=== PATIENT | female | born 1995 | race Caucasian/White ===

== ENCOUNTER 2020-12-10 12:22 | Emergency (ER) | payer OTHER, SELFPAY ==
--- NOTE | ~2020-12-10 | XR_ITS ---
XR hand RT min 3V DATE: 12/12/2020 07:31 INDICATION: Second and third distal phalangeal pustule. Finger wounds. TECHNIQUE: 4 views COMPARISON: None FINDINGS: No fracture or dislocation, periosteal reaction or bone destruction. Joint spaces are prese rved. No subcutaneous emphysema or abnormal calcification. No erosive changes or chondrocalcinosis. IMPRESSION: Negative Reviewed, dictated and finalized at location A. RING ROOM MAN IMPRESSION: Negative
[2020-12-10 12:27] VITALS: BP 136/83; PULSE 112; RESP 16; TEMP 36.4; O2SAT 100
[2020-12-10 13:06] LABS: Add Urine Microscopic? YES; Appearance Urine Clear (Clear); Bacteria Urine Trace /hpf; Bilirubin Urine Negative (Negative); Blood Urine 1+ (Negative); Color Urine Yellow (Yellow); Glucose Urine UA Negative (Negative); Ketones Urine Negative (Negative); Leukocyte Esterase Ur Negative LEU/UL (Negative); Mucus Urine Rare /lpf; Nitrate Urine Negative (Negative); Protein Urine Negative (Negative); Specific Grav Ur 1.013 (1.001-1.035); Squamous Epithelial Cell Urine Rare /hpf (Few); Urobilinogen Urine Negative mg/dL (<2.0); WBC Urine 0-3 /hpf
[2020-12-10 13:20] LABS: Basophils Absolute Auto 0.1 K/mm3 (0.0-0.1); Basophils Percent Auto 0.9 % (0.2-1.2); Eosinophils Absolute Auto 0.2 K/mm3 (0-0.3); Hematocrit 38.5 % (37.0-47.0); Hemoglobin 12.5 g/dL (12.0-15.0); Immature Granulocyte Absolute 0.04 K/mm3 (0.00-0.031); Immature Granulocyte Percent A 0.5 % (0-0.5); Lymphocytes Absolute Auto 1.42 K/mm3 (0.9-3.2); Lymphocytes Percent Auto 17.5 % (18.3-44.2); Mean Corpuscular HGB Conc 32.5 g/dl (32-36); Mean Corpuscular Hemoglobin 29.6 pg (26-34); Mean Corpuscular Volume 91.2 fl (80-100); Mean Platelet Volume 10.4 fl (7.4-10.4); Monocytes Absolute Auto 0.6 K/mm3 (0.1-0.6); Monocytes Percent Auto 7.5 % (2.6-8.5); Neutrophils Absolute Auto 5.8 K/mm3 (1.3-6.7); Neutrophils Percent Auto 70.6 % (45.5-73.1); Platelet Count Result 325 k/mm3 (150-375); Red Blood Count 4.22 M/mm3 (4.2-5.4); Red Cell Distribution Width 13.4 % (11.5-14.5); White Blood Count 8.1 K/mm3 (4.5-10.0)
[2020-12-10 13:33] LABS: Alanine Aminotransferase 25 U/L (4-35); Albumin Level 4.2 g/dL (3.5-5.1); Alkaline Phosphatase 77 U/L (38-126); Anion Gap 6 mmol/L (8-16); Aspartate Amino Transferase 40 U/L (14-36); Bilirubin,Total 0.3 mg/dL (0.2-1.3); Blood Urea Nitrogen 12 mg/dL (7-17); Calcium 8.6 mg/dL (8.4-10.2); Carbon Dioxide 30 mmol/L (22-30); Chloride 104 mmol/L (98-107); Estimated CRCL calculation 101 ml/min; Estimated Glomerular Filt Rate > 60; Glucose 99 mg/dL (65-105); Potassium 3.7 mmol/L (3.4-5.0); Sodium 140 mmol/L (137-145)
--- NOTE | 2020-12-10 13:34 | ED.PSYCH ---
HPI - Psych General Chief Complaint: Psychiatric Symptoms <María Elena Mcdaniel PA-C - Last Filed: 12/11/20 11:59> Stated Complaint: psych <María Elena Mcdaniel PA-C - Last Filed: 12/11/20 11:59> Time Seen by Provider: 12/10/20 12:49 <María Elena Mcdaniel PA-C - Last Filed: 12/11/20 11:59> Source: patient and family <María Elena Mcdaniel PA-C - Last Filed: 12/11/20 11:59> Mode of arrival: ambulatory <María Elena Mcdaniel PA-C - Last Filed: 12/11/20 11:59> Limitations: other (acute psychosis) <María Elena Mcdaniel PA-C - Last Filed: 12/11/20 11:59> History of Present Illness HPI Narrative: This is a 25 year old female that presents to the ER for erratic behavior over the last couple of days. Mother reports patient was recently hospitalized at a psychiatric facility in [place] where she lives. Reports she was discharged about a week ago and mother was trying to get her back here to live with her. Reports she got in town here 2 days ago. Has noted abnormal behavior since she got here. Mother reports patient was being treated with Depakote, mirtazapine, and olanzapine. Patient did not bring her medications with her, so has not had these since she has been here. Mother notes patient has been acting strange. She made 7 different meals at once and then didn't eat any of it. Reports one day she found her outside sitting on the garbage can. Patient currently writing the ABCs on a notepad. Does not directly answer most questions. Pacing around the room. Has no complaints currently. <María Elena Mcdaniel PA-C - Last Filed: 12/11/20 11:59> Related Data Home Medications: Home Medications Medication Instructions Recorded Confirmed divalproex [Depakote] 250 mg PO Q12H 12/10/20 mirtazapine 15 mg PO HS 12/10/20 olanzapine 15 mg PO DAILY 12/10/20 <María Elena Mcdaniel PA-C - Last Filed: 12/11/20 11:59> Allergies/Adverse Reactions: Allergies Allergy/AdvReac Type Severity Reaction Status Date / Time Penicillins Allergy Nausea and Verified 12/10/20 12:37 Vomiting <María Elena Mcdaniel PA-C - Last Filed: 12/11/20 11:59> Review of Systems Review of Systems: Narrative: CONSTITUTIONAL: Denies fever PSYCHIATRIC: Reports anxiety and depression. <María Elena Mcdaniel PA-C - Last Filed: 12/11/20 11:59> All systems reviewed & are unremarkable except as noted in HPI and below <María Elena Mcdaniel PA-C - Last Filed: 12/11/20 11:59> [facility] Past Medical History Medical History: Medical History (Updated 12/13/20 @ 00:00 by Renata Pineda) History of psychiatric hospitalization <María Elena Mcdaniel PA-C - Last Filed: 12/11/20 11:59> Social History Social History: Social History (Updated 12/10/20 @ 13:39 by María Elena Mcdaniel PA-C) Smoking status: Current every day smoker Substance use: current Substance use type: amphetamines Gender identity (if verbalized by the patient): Female <María Elena Mcdaniel PA-C - Last Filed: 12/11/20 11:59> Exam Narrative: Exam Narrative: GENERAL: Thin, disheveled, and in no acute distress. HEAD: Normocephalic, atraumatic. EYES: EOMI. CHEST: Clear to auscultation. No respiratory distress. No wheezes rales or rhonchi HEART: Regular rate and rhythm. No murmur heard. Normal peripheral pulses. EXTREMITIES: Normal range of motion. No edema. SKIN: Warm, dry, no rash. NEURO: No focal deficits. Alert and oriented x3. PSYCH: Patient not easily directable. Jotting notes on her notepad. Pacing around the room. <María Elena Mcdaniel PA-C - Last Filed: 12/11/20 11:59> Course Course Emergency Course: Patient resting comfortably all night during my shift. No availability for bed placement as of yet. Patient to be turned over to Dr. Salmeron at change of shift. Please see his documentation for further disposition. <Elvin Gallagher DO - Last Filed: 12/11/20 06:15> 12/11/20 2200 returned over to myself at shift change patient currently resting in bed no current complaints
[2020-12-10 13:46] LABS: Ethanol < 10 mg/dL (<10)
[2020-12-10 14:04] LABS: Barbiturate Screen Urine Negative (Negative); Benzodiazepines Screen Urine Negative (Negative)
[2020-12-10 14:14] LABS: Amphetamine Screen Urine Negative (Negative); Cannabinoid Screen Urine Negative (Negative); Cocaine Screen Urine Negative (Negative); Methadone Screen Urine Negative (Negative); Opiate Screen Urine Negative (Negative); Phencyclidine Screen Urine Negative (Negative)
--- NOTE | 2020-12-10 15:04 | PC.NURSE ---
Oneyda from Crisis here to speak with patient. Pt is currently noncommunicative, sobbing and won't speak with Crisis.
--- NOTE | 2020-12-10 15:29 | PC.NURSE ---
Report to MARGIE Doyle, to continue care.
[2020-12-10 15:30] LABS: Valproic Acid 12.4 ug/mL (50-120)
[2020-12-10 16:00] VITALS: BP 123/77; PULSE 99; RESP 20; TEMP 36.4; O2SAT 100
--- NOTE | 2020-12-10 16:15 | PC.NURSE ---
During assessment patient would not speak to me. She began to cry and speak incoherently at this time. She was not aggressive with staff. Patient's mother provided information about patient and her history.
--- NOTE | 2020-12-10 17:01 | PC.NURSE ---
Kelly from [facility] called at approximately 1630 today to request intake information on patient. During this phone call she requested to speak with the patient. I transferred her call to the hallway phone and the patient and her mother came to speak with her. When patient was given the phone she would put it down and tell me she does not know how to use these devices . She would then put the phone back to her ear and would speak with disorganized thoughts and became agitated. Patient was able to ambulate back to her room and was accompanied by this nurse as well as her mother and MARGIE Garcia. When back in the room the patient reported frustration and states that I need to finish my research, how can I finish my research. Am I getting my medications or what? I don't know why what is happening now. I can cope. I was unable to get other information from the patient. Patient did take a bottle of water when offered but tells me I only want my food, i need to make it, I need my own caffeine. Patient again stopped talking and would not discuss things further. She sat back on her bed and would not talk to me. Patient was not being violent and was not acting aggressively towards any staff.
[2020-12-10] MEDS: WATER, STERILE FOR INJECTION 10 ML VIAL XX (17:18)
[2020-12-10] MEDS: OLANZapine 10 MG INJ VIAL IM (17:18)
--- NOTE | 2020-12-10 18:30 | PC.NURSE ---
Patient's mother, Azalia Jauregui , requests we call with any updates on patient status or if she is able to be transferred to another facility [facility].
[2020-12-10 20:38] LABS: SARS-CoV-2 RNA PCR Negative
[2020-12-11 02:16] VITALS: PULSE 88; RESP 18; TEMP 36.6; O2SAT 100
[2020-12-11 05:25] VITALS: BP 101/64; PULSE 85; RESP 18; O2SAT 98
--- NOTE | 2020-12-11 07:31 | PC.NURSE ---
Spoke with Oneyda with crisis at this time, updated that [facility] refused placement and still waiting to hear back from [facility] and [facility]. Oneyda states she is headed to her office and will try for placement for patient again. Patient resting in stretcher comfortably at this time with sitter at bedside.
--- NOTE | 2020-12-11 07:44 | PC.NURSE ---
Spoke with Oneyda and refaxed patients chart to [facility] at [phone]. Waiting to hear if accepting.
--- NOTE | 2020-12-11 10:15 | PC.NURSE ---
[facility] called and stated they cannot accommodate her needs. Placement denied at this time.
--- NOTE | 2020-12-11 10:35 | PC.NURSE ---
Faxed patient chart to [facility] at this time ([phone]). Waiting for return call.
--- NOTE | 2020-12-11 12:20 | PC.NURSE ---
Spoke with [facility] at this time and states they don't have a bed available but will contact ED today with a bed number.
[2020-12-11 13:38] VITALS: BP 114/78; PULSE 112; RESP 16; O2SAT 100
--- NOTE | 2020-12-11 18:43 | PC.NURSE ---
Spoke with [facility] at this time and states patient is still accepted to facility but no bed is available. Estimated time of available bed will be 12/12/2020.
[2020-12-11 21:45] VITALS: BP 101/68; PULSE 83; RESP 18; O2SAT 98
[2020-12-12 02:00] VITALS: BP 108/67; PULSE 81; RESP 18; O2SAT 98
[2020-12-12 06:19] VITALS: BP 93/48; PULSE 80; RESP 18; O2SAT 100
[2020-12-12 06:45] VITALS: TEMP 36.4
[2020-12-12 07:07] LABS: Basophils Absolute Auto 0.1 K/mm3 (0.0-0.1); Basophils Percent Auto 1.1 % (0.2-1.2); Eosinophils Absolute Auto 0.3 K/mm3 (0-0.3); Hemoglobin 13.1 g/dL (12.0-15.0); Immature Granulocyte Absolute 0.02 K/mm3 (0.00-0.031); Immature Granulocyte Percent A 0.3 % (0-0.5); Lymphocytes Absolute Auto 1.55 K/mm3 (0.9-3.2); Lymphocytes Percent Auto 25.2 % (18.3-44.2); Mean Corpuscular HGB Conc 32.8 g/dl (32-36); Mean Corpuscular Hemoglobin 30.4 pg (26-34); Mean Corpuscular Volume 92.8 fl (80-100); Mean Platelet Volume 10.2 fl (7.4-10.4); Monocytes Absolute Auto 0.7 K/mm3 (0.1-0.6); Monocytes Percent Auto 11.4 % (2.6-8.5); Neutrophils Absolute Auto 3.5 K/mm3 (1.3-6.7); Platelet Count Result 324 k/mm3 (150-375); Red Blood Count 4.31 M/mm3 (4.2-5.4); Red Cell Distribution Width 13.7 % (11.5-14.5); White Blood Count 6.1 K/mm3 (4.5-10.0)
[2020-12-12 07:15] LABS: Alanine Aminotransferase 17 U/L (4-35); Albumin Level 3.8 g/dL (3.5-5.1); Alkaline Phosphatase 62 U/L (38-126); Anion Gap 6 mmol/L (8-16); Aspartate Amino Transferase 25 U/L (14-36); Bilirubin,Total 0.3 mg/dL (0.2-1.3); Blood Urea Nitrogen 12 mg/dL (7-17); Calcium 8.5 mg/dL (8.4-10.2); Carbon Dioxide 28 mmol/L (22-30); Chloride 104 mmol/L (98-107); Estimated CRCL calculation 88 ml/min; Estimated Glomerular Filt Rate > 60; Glucose 87 mg/dL (65-105); Sodium 138 mmol/L (137-145)
--- NOTE | 2020-12-12 07:19 | PC.NURSE ---
Report received from MARGIE Herring, to continue care. Labs being drawn per order Dr. nur for ulcers on her fingertips. Pt given med po per [facility]. Breakfast tray served.
--- NOTE | 2020-12-12 07:25 | PC.NURSE ---
Xray of hand being done per order. Pt has blisters to right index and middle fingers, and left index finger. States they've been there a long time, I always get them from biting my nails .
--- NOTE | 2020-12-12 08:01 | PC.NURSE ---
Needle I&D performed per Dr. Lamar. Tolerated procedure well. Soaking of hands initiated with warm water and shurclens.
--- NOTE | 2020-12-12 08:43 | PC.NURSE ---
Pt status unchanged, resting comfortably on stretcher. Denies needs at present. 1:1 sitter observation continues.
--- NOTE | 2020-12-12 10:23 | PC.NURSE ---
Pt status unchanged. Resting on stretcher. Mother at bedside. 1:1 sitter observation continues.
--- NOTE | 2020-12-12 12:16 | PC.NURSE ---
Lunch tray ordered for patient. Mother and father have switched out with visiting patient. Pt awake, alert at present. Updated upon awaiting bed placement at another facility.
--- NOTE | 2020-12-12 15:56 | PC.NURSE ---
Pt's father called this RN into the room. States that since the patient has been here and slept, that she is much more lucid and he is wondering if possible that she could be treated outpatient. Pt asleep but easily arousable. Preparing to contact Crisis.
--- NOTE | 2020-12-12 17:22 | PC.NURSE ---
Spoke with Oneyda at [facility]. Explained that the patient is more lucid at present, and that the family is requesting a reevaluation due to patient having slept. Also updated that [facility] has not gotten us the bed as they had told us yesterday. States will have someone come out and speak to patient. Pt and family member updated. Dinner tray ordered per sitter. 1:1 OBS continues with a sitter.
--- NOTE | 2020-12-12 17:47 | PC.NURSE ---
Received call from Pilar at [facility]. States patient has definitely been accepted but that they're awaiting for a bed to open up. Had been hoping today that one would open up, but none have been available. traffic warehouse supervisor made aware. Pt's dinner tray delivered.
--- NOTE | 2020-12-12 18:29 | PC.NURSE ---
MARGIE Lorenzo, from Crisis here to reassess patient. The involuntary intake form done 12/10 has at this time.
[2020-12-12 18:37] VITALS: BP 101/54; PULSE 93; RESP 16; O2SAT 100
--- NOTE | 2020-12-12 19:14 | PC.NURSE ---
Report to Tabitha Burris RN, to continue care.
--- NOTE | 2020-12-12 19:14 | PC.NURSE ---
Report received from MARGIE Posey. Assumed care of patient at this time.
--- NOTE | 2020-12-12 19:43 | PC.NURSE ---
[facility] in room with patient at this time.
== END 2020-12-12 20:08 | disposition home or self-care (01) ==
PROVIDERS: Physician Assistant; Emergency Provider Emergency Medicine
DX: F23 Brief psychotic disorder (principal); L03.012 Cellulitis of left finger; L03.011 Cellulitis of right finger; Z20.822 Contact with and (suspected) exposure to COVID-19
CPT/HCPCS: 36415; 73130; 80053; 80164; 80307; 81001; 81025; 84443; 85025; 96372; 99284; A9270; C9803; U0003; U0005

== ENCOUNTER 2025-10-03 11:35 | Emergency (ER) | payer OTHER, SELFPAY ==
--- NOTE | 2025-10-03 11:45 | ED.URI ---
HPI - URI/Sore Throat General Chief Complaint: Upper Respiratory Infection Stated Complaint: Cough Time Seen by Provider: 10/03/25 12:01 Source: patient, RN notes reviewed and old records reviewed Mode of arrival: ambulatory Limitations: no limitations History of Present Illness HPI Narrative: 30-year-old female presents to the [facility] with sinus congestion, drainage, productive cough for 2 weeks. No treatment prior to arrival. Denies fevers, chest pain, shortness of breath Related Data Allergies Allergy/AdvReac Type Severity Reaction Status Date / Time Penicillins Allergy Nausea and Verified 10/03/25 11:46 Vomiting Review of Systems Review of Systems: All systems reviewed & are unremarkable except as noted in HPI and below Constitutional: Constitutional: Reports no additional constitutional complaints ENT: Reports as per HPI, Reports nasal congestion and Reports nasal discharge Cardiovascular: Cardiovascular: Reports no additional cardiovascular complaints, Denies chest pain and Denies dyspnea Respiratory: Respiratory: Reports as per HPI, Reports chest congestion, Reports cough and Denies dyspnea Musculoskeletal: Musculoskeletal: Reports no additional musculoskeletal complaints Integumentary/Breasts: Skin/Breast: Reports system reviewed and no additional complaints, except as docu PMFSH Past Medical History Medical History History of psychiatric hospitalization Social History Social History Smoking status: Current every day smoker Substance use: current Substance use type: amphetamines Gender identity (if verbalized by the patient): Female Comments At the time of my signature, I reviewed and agree with the nursing past medical, surgical, social, and family history. There is no relevant family history pertinent to the patient complaint. Exam Const: General: cooperative, no acute distress, well developed, alert, tired appearing, uncomfortable and well nourished Nutritional Appearance: well nourished Orientation/consciousness: patient oriented x3 Limitations: no limitations HENMT: Head: normal to inspection Ears: hearing grossly normal bilaterally, external ears normal, TM's normal bilaterally, EAC's normal, mastoids normal and no periauricular adenopathy Face/Nose/Sinus: Nasal discharge present clear bilateral Face and sinus: sinuses nontender and face symmetric Mouth: Yes Normal oral and palatal mucosa present, Yes lip normal, Yes tongue normal and Yes moist mucous membranes abnormal Throat: posterior oropharynx normal, uvula midline and postnasal drainage Eyes: General: appearance normal, both eyes and all related structures Alignment and Position: alignment normal Neck: Neck: normal visual inspection, full ROM, no lymphadenopathy and no meningeal signs Chest: Chest palpation & inspection: normal inspection of the chest Resp: Effort & Inspection: normal respiratory effort and able to speak in complete sentences Auscultation: clear to auscultation bilaterally, no crackles, no rales, no rhonchi and no wheezes Cardio: Rate: regular rate Skin: General skin exam: normal color and no rashes or lesions noted Neuro: General: patient oriented x3, gait normal, moves all extremities and no meningeal signs Cognition (Neuro): normal cognition Speech: normal speech Gait exam (Neuro): Normal gait present Extrem: General: normal to inspection, full ROM, capillary refill normal and normal gait Psych: Appearance: grossly normal and well kempt Mental Status: mental status grossly normal Speech and movement: Normal speech and movement present and Clear speech present Affect: normal affect Attitude: cooperative Course Course Level of Care: Express Care Visit Vital Signs Vital signs: Vital Signs Temperature 97.8 F 10/03/25 11:47 Pulse Rate 113 H 10/03/25 11:47 Respiratory Rate 20 10/03/25 11:47 Blood Pressure 110/89 10/03/25 11:47 Pulse Oximetry 100 10/03/25 11:47 Oxygen Delivery Room Air 10/03/25 11:47 Temperature 97.8 F 10/03/25 11:47 Pulse Rate 113 H 10/03/25 11:47 Respiratory Rate 20 10/03/25 11:47 Blood Pressure 110/89 10/03/25 11:47 Pulse Oximetry 100 10/03/25 11:47 Oxygen Delivery Room Air 10/03/25 11:47 reviewed MDM MDM Narrative Medical decision making narrative: patient sitting in exam room. Patient is nontoxic, vitals stable. Patient presents 2 week history of sinus and bronchitis symptoms. Lungs are clear, has significant postnasal drainage noted. Will cover with an antibiotic due to length of symptoms patient is appropriate for outpatient treatment with close follow-up Discharge instructions reviewed with patient, as well as provided in writing per nursing staff. The instructions also include specific and strict return/GO TO THE ER as well as f/u information. All questions have been answered, and the patient deny any further questions with discharge and discharge plan. Some parts of this dictation were generated by voice recognition software and may contain typographical and/or grammatical inaccuracies. Differential Diagnosis Differential Diagnosis: Differential diagnostic considerations for upper respiratory infection include upper respiratory infection, croup, otitis media, sinusitis, viral infection, bronchitis, influenza, pharyngitis, strep, uvulitis.? Discharge Plan Discharge Clinical Impression: PND (post-nasal drip) Sinusitis Qualifiers: Sinusitis location: unspecified location Chronicity: acute Recurrence: not specified as recurrent Qualified Code(s): J01.90 - Acute sinusitis, unspecified Patient Disposition: Home Condition: Stable Instructions: Antibiotic Form, Sinusitis (ED), Postnasal Drip (DC) Additional Instructions: It is very important to treat your symptoms. Drink plenty of water, Gatorade, Pedialyte, ice pops or Jell-O. -Alternate Tylenol and Motrin per package directions for fever or pain. You can alternate every 4 hours -Antihistamine medication such as Zyrtec/Claritin/Julissa during the day can help improve symptoms. -doing daily nasal irrigations can help relieve pressure your sinuses. Things like a Neti pot -Use Flonase twice a day for 5 days then daily to help reduce the inflammation and dry up your sinuses. -You can also use Mucinex. Be sure to drink plenty of water with this medication at least 8 ounces with every dose and it is important to drink 8 to 10 glasses of water per day. Water is a natural decongestant -Eat and drink things that are easy to swallow, like tea or soup, or popsicles. -Oral rinses such as: Salt water gargles and/or may use topical anesthetic (eg. Chloraseptic spray) or lozenges to relieve dryness or throat pain). -Frequent hand washing or hand packing house supervisor is one of the best ways to prevent spread of infection. -Using a vaporizer or humidifier at night will also help thin secretions and help with coughing up phlegm. -Follow up with primary care provider in 7-10 days if condition is not improving - For new or worsening symptoms go directly to the nearest ER Patient Language: French Prescriptions: New doxycycline monohydrate 100 mg tablet 100 mg PO BID Qty: 14 0RF Follow-up/Referrals: UNKNOWN,DOCTOR [Primary Care Provider] Stand Alone Forms: Work/School Release IP Time of Disposition: 12:11
[2025-10-03 11:47] VITALS: BP 110/89; PULSE 113; RESP 20; TEMP 36.6; O2SAT 100
--- OUTSIDE RECORDS SUMMARY | 2025-10-03 11:56 | XMS_ITS | Encounter Summary ---
Author Organization [facility] Address [address] [place] [id number] Phone Care Team Providers Care Station Engineer Name Role Phone Provider, None Primary Care Provider Margaret Keith APRN, DIGITAL PRODUCT SPECIALIST Primary Care Provider [phone] Reason for Referral * PT/OT/ST (Routine) - Closed Specialty Diagnoses / Procedures Referred By Contac t Referred To Contact Physical Therapy Diagnoses Weakness of right shoulder Eleazar Modi MD [address], [address] [place] [address] Phone: tel: fax: Referral ID Status Reason Start Date Expiration Date Visits Re quested Visits Authorized [id number] Closed 08/02/2024 50 12 Scheduling Instructions Encounter Details Date Type Department Care Team (Late st Contact Info) Description 08/02/2024 Transcribe Orders [facility] [address] [place] [address] Eleazar Modi MD [address] [place] [address] , [address] [place] [address] Weakness of right shoulder (Primary Dx) Social History Tobacco Use Types Packs/Day Years Used Date Smoking Tobacco: Never Assessed Comments Unknown Sex and Gender Information Value Date Recorded Sex Assigned at Not on file Legal Sex Female 2:44 PM CDT Gender Identity Not on file Sexual Orientation Not on file documented as of this encounter Plan of Treatment Scheduled Referrals Name Type Priority Associated Diagnoses Orde r Schedule PHYSICAL THERAPY REFERRAL Outpatient Referral Routine Weakness of right shoulder Expected: 08/02/2024, Expires: 08/02/2025 documented as of this encounter Visit Diagnoses Diagnosis Weakness of right shoulder- Primary documented in this encounter Care Teams Station Engineer Relationship Specialty Start Date End Date Provider, Swapna GARCIAS PCP - General 08/12/24 03/13/25 Margaret Abdi, MENTAL HEALTH PROFESSIONAL, DIGITAL PRODUCT SPECIALIST [address] [place] [address] PCP - General Certified Nurse Practitioner 03/14/25 documented as of this encounter
--- OUTSIDE RECORDS SUMMARY | 2025-10-03 11:56 | XMS_ITS | Patient Health Record ---
Author Organization [facility] Address [address] [place] [address] Phone [phone] Care Team Providers Care Coal Getter Name Role Phone Onelia Corey APRN Primary Care Provider Allergies Allergen (clinical drug ingredient) Drug/Non Drug Allergy documented on EMR Reaction Allergy Type Onset Date Status Penicillin Unknown Drug Allergy Active Reason For Referral No Information Medications Medication SIG (Take, Route, Frequency, Duration) Notes Start Date End Date Diagnosis (ICD Code) Status Mirtazapine 7.5 MG Tablet 1 tablet at bedtime Orally Once a day; Duration: 30 days Brief psychoti c disorder (ICD_10 - F23) Active Depakote ER 250 MG Tablet Extended Release 24 Hour 1 tablet Orally Once a day; Duration: 30 day(s) Brief psychotic disorder (ICD_10 - F23) Active OLANZapine 5 MG Tablet 1 tablet Orally Once a day; Duration: 30 days Brief psychoti c disorder (ICD_10 - F23) Active Social History Tobacco Use: Social History Observation Description Date Details (start date - stop date) Current Smoker NA - NA Sex Observation Social History Observation Description Sex Observation Female Social History Primary Social History Social Info Question Answer Notes Living Arrangement Living Arrangement: Dependent Kristin dahl Living with: Parent(s) Is this a supportive environment? No Employment Status Employment Status: Unemployed Illicit Substance Usage Illicit Substance Usage: No Alcohol Use Alcohol Use Frequency: Never Tobacco Use: Social Info Question Answer Notes Dont use, Tobacco Use/Smoking Are you a current smo ker How often do you smoke cigarettes? every day How many cigarettes a day do you smoke? 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) Added On:01/19 Active confirmed Plan Of Treatment No Information Insurance Providers Payer Name Payer Address Payer Phone Subscriber Number Group Number Insured Name Patient Relationship to Insured Coverage Start Date Coverage End Date [employer] [address] [place] [address] [id number] Deirdre Schreiber Self - patient is the insured 1 [employer] [address] [place] [address] [id number] Deirdre Schreiber Self - patient is the insured 1 Medical (General) History Surgical History Surgery Date(Month/Year) abcess tooth, cut out Hospitalization History Reason Date(Month/Year) [facility]
--- OUTSIDE RECORDS SUMMARY | 2025-10-03 11:56 | XMS_ITS | Clinical Summary ---
Author Organization [facility] Address [address] [place] [address] Phone Care Team Providers Care Oil Well Engineer Name Role Phone Margaret Abdi APRN, AIRFRAME TECHNICIAN Primary Care Provider [phone] Allergies Active Allergy Reactions Criticality Noted Date Comments Penicillin G Unknown 02/14/2023 Happened when she was a child Medications Ibuprofen 100 MG Tablet Take 600 mg by mouth every 6 hours as needed for Moderate or more severe pain. Active Active Problems Problem Noted Date Diagnosed Date Methamphetamine abuse in remission 03/14/2025 Tobacco user 03/14/2025 Cigarette nicotine dependence without complicati on 09/25/2023 Methamphetamine dependence 09/25/2023 Anxiety 02/14/2023 Drug addiction in remission 02/14/2023 Moderate episode of recurrent major depressive d isorder 02/14/2023 Encounters Date Type Department Care Team Description 08/27/[address] [facility] - Primary Care [facility] [address] [place] [address] Margaret Abdi APRN, AIRFRAME TECHNICIAN from Last 3 Months Family History Medical History Relation Name Comments No Known Problems Father No Known Problems Mother Relation Name Status Comments Father Mother Alive Social History Tobacco Use Types Packs/Day Years Used Date Smoking Tobacco: Every Day Cigarettes Smokeless Tobacco: Never Tobacco Cessation:Ready to Q uit: Not Asked; Counseling Given: Not Answered Alcohol Use Standard Drinks/Week Comments Yes 0 (1 standard drink = 0.6 oz pur e alcohol) sometimes PHQ-2 Answer Date Recorded Total Score - Questions 1-9 0 02/15 Sexually Active Control Partners Comments Yes Comments No Sex and Gender Information Value Date Recorded Sex Assigned at Not on file Legal Sex Female 2:44 PM CDT Gender Identity Not on file Sexual Orientation Not on file Last Filed Vital Signs Vital Sign Reading Time Taken Comments Blood Pressure 92/62 03/14/2025 8:33 AM CDT Pulse 104 03/14/2025 8:33 AM CDT Temperature 36.6 C (97.9 F) 03/14/2025 8:33 AM CDT Respiratory Rate 16 03/14/2025 8:33 AM CDT Oxygen Saturation 100% 03/14/2025 8:33 AM CDT Inhaled Oxygen Concentration - - Weight 51.3 kg (113 lb) 03/14/2025 8:33 AM CDT Height 170.2 cm (5' 7) 03/14/2025 8:33 AM CDT Body Mass Index 17.7 03/14/2025 8:33 AM CDT Plan of Treatment Health Maintenance Due Date Last Done Comments Hepatitis C Virus (HCV) Screening 1996 TdaP Immunization 1996 Varicella Immunization (1 of 2 - 13+ 2-dose series) 2009 Hepatitis B Immunization (1 of 3 - 19+ 3-dose series) 2015 Pneumococcal Immunization Co mbined (1 of 2 - PCV) 2015 Influenza Immunization (#1) 2025 SARS-COV-2 Immunization (1 - season) 2025 Pap Smear 02/19/2026 Postponed from 2017 (Patient Temporarily Declines) Respiratory Syncytial Virus (RSV) Immunization (Adult) (1 - 1-dose 75+ series) 2071 Human Papillomavirus (HPV) Immunization (No Doses Required) Completed Meningococcal Immunization (ACWY) Aged Out No longer eligible based on patient's age to complete this topic Rotavirus Immunization Aged Out No lo nger eligible based on patient's age to complete this topic Insurance MEDICAID [place] Care Teams Oil Well Engineer Relationship Specialty Start Date End Date Margaret Abdi APRN, AIRFRAME TECHNICIAN [address] [place] [address] PCP - General Certified Nurse Practitioner 03/14/25
--- OUTSIDE RECORDS SUMMARY | 2025-10-03 11:56 | XMS_ITS | Clinical Summary ---
Author Organization [facility] [place] [address] [facility] Address [address] [place] [address] Care Team Providers Care Tile Molder Name Role Phone Rosemary Durham NP Primary Care Provider [phone] Allergies Active Allergy Reactions Criticality Noted Date Comments Penicillin Unknown 02/14/2023 Happened when she was a child Medications sertraline (ZOLOFT) 25 mg tablet Take 1 tablet (25 mg total) by mouth daily 90 tablet 1 08/12/2024 Active naproxen (NAPROSYN) 500 mg tablet TAKE 1 TABLET(500 MG) BY MOUTH TWICE DAILY NEEDED FOR PAIN 60 tablet 1 08/23/2024 Active hydrOXYzine (ATARAX) 10 mg tablet Take 1 tablet (10 mg total) by mouth every 8 (eight) hours as needed for anxiety 30 tablet 1 09/17/2024 Active busPIRone (BUSPAR) 5 mg tabletIndicatio ns:Generalized Anxiety Disorder Take 1 tablet (5 mg total) by mouth 3 (three) times a day 90 tablet 1 10/22/2024 6 Active Active Problems Problem Noted Date Diagnosed Date Methamphetamine dependence 09/25/2023 Cigarette nicotine dependence without complicati on 09/25/2023 Anxiety 02/14/2023 Assessment & Plan (06/27/2024 11:06 AM CDT): Not at goal, likely contributing to patient's decreased appetite and low BMI. Will trial Sertraline 25 mg daily and Hydroxyzine 10 mg TID prn. Education provided. Follow up in 4 weeks. Assessment & Plan (06/21/2023 10:27 AM CDT): Overall feeling much better, she has been able to take some time off work and go back home/travel. Gets increased anxiety with interviews but not interested in medication at this time. Discussed counseling and biofeedback. Information/resources provided. She will try this and follow up if no improvement. Assessment & Plan (02/15/2023 12:49 PM CDT): Has tried Depakote in the past but doesn't believe she was dx with bipolar She denies SI. Very anxious and quiet in office. Heart rate elevated, drinking energy drink, discussed decreasing those as she admits to drinking a large amount daily. Discussed how this can make anxiety worse. She is hesitant to trial medication at this time. Highly encourage counseling. Resources provided. Will also refer to Psychiatry for more insight given her past medication hx. Moderate episode of recurrent major depressive d isorder 02/14/2023 Assessment & Plan (06/27/2024 11:06 AM CDT): Not at goal, likely contributing to patient's decreased appetite and low BMI. Will trial Sertraline 25 mg daily and Hydroxyzine 10 mg TID prn. Education provided. Follow up in 4 weeks. Assessment & Plan (02/15/2023 12:49 PM CDT): Has tried Depakote in the past but doesn't believe she was dx with bipolar She denies SI. Very anxious and quiet in office. Heart rate elevated, drinking energy drink, discussed decreasing those as she admits to drinking a large amount daily. Discussed how this can make anxiety worse. She is hesitant to trial medication at this time. Highly encourage counseling. Resources provided. Will also refer to Psychiatry for more insight given her past medication hx. Drug addiction in remission 02/14/2023 Assessment & Plan (02/14/2023 3:04 PM CDT): Rehab x 2 years ago and clean ever since Immunizations Immunization Administration Dates Next Due Influenza, Unspecified 06/21/2023(Deferr ed: Patient Refused),10/16/2022(Deferred: Patient Refused),10/16/2021(Deferred: Patient Refused) Surgical History Surgery Date Site/Laterality Comments WISDOM TOOTH EXTRACTION Family History Medical History Relation Name Comments Breast cancer Paternal Grandmother Relation Name Status Comments Paternal Grandmother Social History Tobacco Use Types Packs/Day Years Used Date Smoking Tobacco: Some Days Cigarettes Vaping Passive Smoke Exposure: Current Smokeless Tobacco: Never Tobacco Cessation:Ready to Q uit: Not Asked; Counseling Given: Not Answered PHQ-2 Answer Date Recorded PHQ-2 Total Score (If total score is 3 or more points, staff should administer the PHQ-9) 2 10/22/2024 AUDIT-C Answer Date Recorded Q1: How often do you have a drink containing alcohol? 4 or more times a week 06/16/2025 Average Number of Drinks Not on file 025 Frequency of Binge Drinking Not on file 10/2024 Personal Safety Answer Date Recorded Have you ever been in or are you currently in a harmful physical or emotional relationship or is someone making you feel afraid or unsafe? Denies 06/16/2025 Comments No Sex and Gender Information Value Date Recorded Sex Assigned at Not on file Legal Sex Female 2:31 PM CDT Gender Identity Not on file Sexual Orientation Not on file Last Filed Vital Signs Vital Sign Reading Time Taken Comments Blood Pressure 128/83 06/16/2025 7:59 AM CDT Pulse 105 06/16/2025 7:59 AM CDT Temperature 36.5 C (97.7 F) 06/16/2025 7:59 AM CDT Respiratory Rate 18 06/16/2025 7:59 AM CDT Oxygen Saturation 97% 06/16/2025 7:59 AM CDT Inhaled Oxygen Concentration - - Weight 49.9 kg (110 lb) 06/16/2025 8:00 AM CDT Height 170.2 cm (5' 7) 06/16/2025 8:00 AM CDT Body Mass Index 17.23 06/16/2025 8:00 AM CDT Plan of Treatment Health Maintenance Due Date Last Done Comments Cervical Cancer Screening 1996 DTaP/Tdap/Td Vaccine (1 - Tdap) 2007 Varicella Vaccines (1 of 2 - 13+ 2-dose series) 2009 Hepatitis B Screening 2014 Pneumococcal vaccine <65 (1 of 2 - PCV) 2015 HPV Vaccines (1 - 3-dose SCD M series) 2023 Influenza Vaccine (#1) 2025 Regular Well Visit/Exam 18-64 06/27/2025 06/27/2024 Depression Screening 10/22/2025 10/22/2024, 06/27/2024, 09/25/2023, Additional history exists Hepatitis C Screening Completed 06/27/2024 Procedures Procedure Name Priority Date/Time Associated Diagnosis Comments HEPATITIS C ANTIBODY Routine 06/27/2024 11:07 AM CDT Encounter for hepatitis C screening test for low risk patient from Last 3 Months or Most Recently Relevant to Health Maintenance Results * Hepatitis C antibody Blood (06/27/2024 11:07 AM CDT) Hep C Ab Nonreactive Nonreactive Comment: Interpretive Data Nonreactive: Antibodies to HCV not detected. Does NOT exclude the possibility of recent exposure to HCV. Equivocal: Equivocal for HCV antibodies. Supplemental molecular testing will be automatically performed to determine infection status in accordance with current CDC screening recommendations. Reactive: Positive for HCV antibodies. This may represent current or past HCV infection. Supplemental molecular testing will be automatically performed to determine current infection status in accordance with current CDC screening recommendations. Interpretive data was last revised on 2020. Blood 06/27/2024 11:0 7 AM CDT 06/27/2024 4:51 PM CDT Rosemary Durham NP LAB MICROBIOLOGY - GENERAL ORDER CHARLIE Final Result [facility] [id number] Department [place] [address] from Last 3 Months or Most Recently Relevant to Health Maintenance Insurance [address] [place] [address] [facility] Care Teams Tile Molder Relationship Specialty Start Date End Date Rosemary Durham NP [address] [facility] [address] [place] [address] PCP - General Family Medicine 02/14/23
== END 2025-10-03 12:15 | disposition home or self-care (01) ==
PROVIDERS: Emergency Provider Nurse Practitioner
DX: R09.82 Postnasal drip (principal); J01.90 Acute sinusitis, unspecified; F17.200 Nicotine dependence, unspecified, uncomplicated; F15.90 Other stimulant use, unspecified, uncomplicated
CPT/HCPCS: 99213; G0463